=== PATIENT | male | born 1995 | race Caucasian/White ===

== ENCOUNTER 2022-12-03 10:05 | Emergency (ER) | payer OTHER ==
[~2022-12-03] VITALS: Ht 188 cm; Wt 101.8 kg
[2022-12-03] MEDS ORDERED: BACI500O8 TOP (12:38)
[2022-12-03 12:47] VITALS: BP 148/79
== END 2022-12-03 12:49 | disposition home or self-care (01) ==
LOC: M ED 10:05
DX: S00.03XA Contusion of scalp, initial encounter (principal); S00.05XA Superficial foreign body of scalp, initial encounter; S00.411A Abrasion of right ear, initial encounter; W00.0XXA Fall on same level due to ice and snow, initial encounter; Y92.410 Unspecified street and highway as the place of occurrence of the external cause